=== PATIENT | male | born 1990 | race Caucasian/White ===

== ENCOUNTER 2017-04-09 23:11 | Emergency (ER) | payer OTHER ==
[~2017-04-09] VITALS: Ht 177.8 cm; Wt 86.7 kg
[2017-04-09 23:21] VITALS: TEMP 37.1; Ht 177.8 cm; Wt 86.7 kg
--- NOTE | 2017-04-09 23:31 | EMERGENCY ROOM VISIT NOTE ---
History Report prepared by Melaniaibazul: Jade Pugh Under the Supervision of: Dr. Katelyn Perez D.O. First contact with patient: 23:08 Chief Complaint: ALCOHOL OVERDOSE Stated Complaint: ALCOHOL History of Present Illness The patient is a 27 year old male who presents to the Emergency Room with complaints of an episode of a alcohol overdose occurring just prior to arrival. The patient notes taking 10 mg of Adderall this morning. The patient's alcohol level was 369 on a partial upon arrival. Per EMS, the patient fell and was found crawling on the ground. He denies hitting his head. The patient was at the [facility] [employer]. He denies any abdominal pain or vomiting. The patient denies having any active medical problems. Source of History: patient History Limited By: intoxication Onset: just prior to arrival Position: other (generalized) Quality: other (alcohol overdose) Timing: other (episode) Associated Symptoms: No vomiting, No abdominal pain Review of Systems See HPI for pertinent positives & negatives. A total of 10 systems reviewed and were otherwise negative. Past Medical & Surgical Medical Problems: (1) No Known Active Medical Problems Family History No pertinent family history stated. Social History Alcohol Use: occasionally Occupation Status: employed Current/Historical Medications No Active Prescriptions or Reported Meds Allergies Coded Allergies: No Known Allergies (Unverified , 04/10/17) Physical Exam Vital Signs Date Time Temp Pulse Resp B/P (MAP) Pulse Ox O2 Delivery O2 Flow Rate FiO2 04/10/17 06:27 105/68 04/10/17 06:26 83 20 97 04/10/17 06:24 85/34 04/10/17 06:23 04/10/17 06:11 77 97 04/10/17 06:01 04/10/17 05:56 78 98 04/10/17 05:41 79 18 97 04/10/17 05:31 123/69 04/10/17 05:26 84 18 97 04/10/17 05:11 94 98 04/10/17 05:01 91/51 04/10/17 04:56 83 98 04/10/17 04:41 87 13 98 04/10/17 04:31 100/50 04/10/17 04:26 85 21 92 04/10/17 04:11 83 18 97 04/10/17 04:01 94/42 04/10/17 04:00 85 17 91/55 97 Room Air 04/10/17 03:58 04/10/17 03:56 91 25 98 04/10/17 03:41 87 97 04/10/17 03:31 107/52 04/10/17 03:30 87 04/10/17 03:26 94 21 96 04/10/17 03:18 122/59 04/10/17 03:11 93 21 96 04/10/17 03:01 04/10/17 02:56 92 97 04/10/17 02:41 92 91 04/10/17 02:36 98 93 04/10/17 02:31 109/53 04/10/17 02:21 95 23 97 04/10/17 02:06 97 22 95 04/10/17 02:01 101/53 04/10/17 01:51 99 21 96 04/10/17 01:36 101 21 94 04/10/17 01:31 115/48 04/10/17 01:21 101 23 97 04/10/17 01:16 100 26 97 04/10/17 01:11 125/59 04/10/17 01:01 121 16 98 04/10/17 00:46 117 04/10/17 00:31 109 22 107/54 99 04/10/17 00:16 103 23 97 04/10/17 00:11 106 20 98 04/10/17 00:01 112/57 04/09/17 23:56 113 93 04/09/17 23:54 130/78 04/09/17 23:41 120 19 97 04/09/17 23:26 130 19 98 Room Air 04/09/17 23:25 124 04/09/17 23:21 37.1 127 19 140/86 98 Room Air 04/09/17 23:17 140/86 Physical Exam General: Patient smells of alcohol. HEENT: Head - normocephalic and atraumatic Pupils are equal, round, and reactive to light. Extraocular eye muscles are intact, and sclera are anicteric. Nose - moist nasal mucosa without discharge. Mouth - moist buccal mucosa. Oropharynx is nonerythematous and there is no tonsillar exudate or edema noted. Neck: Supple; no JVD, nuchal rigidity, cervical lymphadenopathy. Heart: Regular rate and rhythm. There is a normal S1 and S2 with no murmurs, clicks, or gallops appreciated. Lungs: Clear to auscultation bilaterally with no wheezes, rales, or rhonchi. Abdomen: Soft, completely nontender, nondistended, with good bowel sounds. There are no palpable pulsatile masses or hepatosplenomegaly. There is no guarding, rigidity, or rebound noted. Extremities: No evidence of cyanosis, clubbing, or edema. There are easily palpable peripheral pulses. Skin: warm and dry with good turgor and no rashes. Medical Decision & Procedures Laboratory Results 04/09/17 23:24 Test 04/09/17 23:24 Anion Gap 9.0 mmol/L (3-11) Est Creatinine Clear Calc Drug Dose 106.1 ml/min Estimated GFR () 108.4 Estimated GFR (Non- 93.6 BUN/Creatinine Ratio 8.2 (10-20) Calcium Level 8.4 mg/dl (8.5-10.1) Ethyl Alcohol mg/dL 406.9 mg/dl (0-3) Laboratory results per my review. ED Course 2308: The patient was evaluated in room A9B. A complete history and physical exam was performed. The patient was placed in the prone position to avoid aspiration. He was observed on the monitoring manager and pulse oximeter. Laboratory studies were drawn as above. 2358: The patient is sound asleep in prone position, being monitored and hemodynamically stable. 0200: The patient is sleeping and is hemodynamically stable. 0514: The patient is still sleeping and his vitals are stable. 0600: The patient is still sleeping and his vitals are stable. 0632: The patient is awake and trying to call friends to pick him up. 0646: The patient has a friend who is on his way to pick him up. 0700: Upon reevaluation, the patient was resting comfortably. I discussed findings and results with the patient. He verbalized agreement of the treatment plan. The patient was discharged home. Medical Decision The patient is a 27 year old male who presents to the ED with an episode of an alcohol overdose. Differential diagnosis includes alcohol intoxication, drug overdose, hypothermia, head injury, hypoglycemia. Lab results show: alcohol 406, glucose 103, and normal renal function The patient was brought to the emergency department after consuming too much alcohol. He remained cooperative throughout his stay. He was hemodynamically stable. Once he was more sober, we woke him up. He was able to contact a sober friend and be discharged with specific instructions to avoid such excessive alcohol use in the future. Blood Pressure Screening Patient's blood pressure: Normal blood pressure Impression Primary Impression: Alcohol overdose Scribe Attestation The scribe's documentation has been prepared under my direction and personally reviewed by me in its entirety. I confirm that the note above accurately reflects all work, treatment, procedures, and medical decision making performed by me. Departure Information Dispostion Home / Self-Care Prescriptions No Active Prescriptions or Reported Meds Forms HOME CARE DOCUMENTATION FORM, IMPORTANT VISIT INFORMATION Patient Instructions ED Overdose Alcohol, My [facility] Additional Instructions Avoid such excessive alcohol use in the future Rest. take plenty of clear liquids Use tylenol for headache Problem Qualifiers Primary Impression: Alcohol overdose Encounter type: initial encounter Injury intent: accidental or unintentional Qualified Codes: T51.91XA - Toxic effect of unspecified alcohol , accidental (unintentional), initial encounter
[2017-04-09 23:55] LABS: BUN/CREATININE RATIO 8.2 (10-20); CALCIUM 8.4 mg/dl (8.5-10.1); CREATININE 1.08 mg/dl (0.60-1.40)
[2017-04-10 08:15] VITALS: BP 113/60; PULSE 88; O2SAT 98
== END 2017-04-10 08:40 | disposition home or self-care (01) ==
LOC: EDBD 23:11 → C.EDA 23:13
DX: T51.0X1A Toxic effect of ethanol, accidental (unintentional), initial encounter (principal)